=== PATIENT | male | born 1995 | race Caucasian/White ===

== ENCOUNTER 2016-09-06 16:48 | Emergency (ER) | payer SELFPAY ==
[~2016-09-06] VITALS: Ht 185.4 cm; Wt 84.0 kg
[~2016-09-06 16:48] MED LIST: ZITH250T PO; ZOFR4TAB3 SL
[2016-09-06 16:54] VITALS: PULSE 66; RESP 16; TEMP 97.6; O2SAT 100
--- NOTE | 2016-09-06 17:42 | PD ---
HPI Chief Complaint: Allergic/Adverse Reaction Time Seen by Provider: 17:26 Travel History International Travel<30 days: No Contact w/Intl Traveler<30days: No Traveled to known affect area: No History of Present Illness HPI 21yo M with PMH of brain tumor s/p resection presents to the ED with c/o rash since 4pm today. Pt first noticed it in left arm and then spread to entire body. It is itchy and he took 2 benadryl which did not really help. Pt initially had sob when he arrived and now some chest tightness. Denies any tongue or lip swelling, n/v, abdominal pain. Pt used her sister's body wash yesterday that is new but denies any new food, medication or lotion otherwise. PFSH Past Medical History Anemia: Yes Diminished Hearing: No Immunizations Current: Yes Past Surgical History Other Surgery: Yes ("BRAIN SX. A CHILD" PER PT.) Social History Alcohol Use: No Tobacco Use: No Substance Use: Yes (KERI) Allergies-Medications (Allergen,Severity, Reaction): Coded Allergies: No Known Allergies (Verified , 09/06/16) Reported Meds & Prescriptions Reported Meds & Active Scripts Active Prednisone 20 Mg Tab 20 Mg PO BID 5 Days Allergy (Diphenhydramine HCl) 25 Mg Cap 25 Mg PO Q8HR 5 Days Adrenaclick Inj Pack (Epinephrine) 0.3 Mg/0.3 Ml Pfpen 0.3 Mg IM ONCE PRN Review of Systems Except as stated in HPI: all other systems reviewed are Neg Physical Exam Narrative GENERAL: 21yo M not in distress. SKIN: Diffuse urticarial rash in abdomen, chest, bilateral arms and legs. HEAD: Atraumatic. Normocephalic. EYES: Pupils equal and round. No scleral icterus. No injection or drainage. ENT: Throat: Uvula midline. No tongue or uvula swelling. NECK: Trachea midline. No JVD. CARDIOVASCULAR: Regular rate and rhythm. No murmur appreciated. RESPIRATORY: No accessory muscle use. Clear to auscultation. Breath sounds equal bilaterally. GASTROINTESTINAL: Abdomen soft, non-tender, nondistended. MUSCULOSKELETAL: No obvious deformities. No clubbing. No cyanosis. No edema. NEUROLOGICAL: Awake and alert. No obvious cranial nerve deficits. Motor grossly within normal limits. Normal speech. PSYCHIATRIC: Appropriate mood and affect; insight and judgment normal. Data Data Last Documented VS Vital Signs Date Time Temp Pulse Resp B/P Pulse Ox O2 Delivery O2 Flow Rate FiO2 09/06/16 21:18 88 18 153/63 98 Room Air 09/06/16 16:54 97.6 Orders Ecg Monitoring (09/06/16 17:36) Iv Access Insert/Monitor (09/06/16 17:36) Oximetry (09/06/16 17:36) Methylprednisolone So Succ Inj (Solumedr (09/06/16 17:45) Famotidine Inj (Pepcid Inj) (09/06/16 17:45) Sodium Chloride 0.9% Flush (Ns Flush) (09/06/16 17:45) Epinephrine (1:1000) Inj (Adrenalin (1:1 (09/06/16 17:45) Electrocardiogram (09/06/16 17:50) MDM Medical Decision Making Medical Screen Exam Complete: Yes Emergency Medical Condition: Yes Interpretation(s) EKG: NSR 80bpm. Normal axis. +PVCs. No ST segment elevation or depression. Differential Diagnosis Anaphylaxis vs. urticaria Narrative Course 21yo M with generalized urticaria and sob/chest tightness that started at 4pm today. Pt took benadryl without relieve. Pt with 2 systems involvement so will give epinephrine, methylprednisolone and famotidine. Pt reevaluated at bedside and urticaria has improved. States chest tightness has also improved. Pt has been observed in the ED on bus monitor for 4 hours after epinephrine administration and his symptoms has resolved. Pt denies any sob, chest tightness and urticarial rash has significantly improved. Lungs are clear. Return precautions given. Diagnosis Primary Impression: Anaphylaxis Qualified Code: T78.2XXA - Anaphylaxis, initial encounter Patient Instructions: General Instructions Departure Forms: Tests/Procedures Additional Instructions: Please follow up with your PMD in 3-7 days. Please return to the ED if symptoms worsen. Med/Other Pt SpecificInfo: Prescription(s) given Scripts Prednisone 20 Mg Tab20 Mg PO BID 5 Days Ref 0 Prov:Danni Naranjo DO 09/06/16 Diphenhydramine HCl (Allergy)25 Mg Cap25 Mg PO Q8HR 5 Days Prov:Danni Naranjo DO 09/06/16 Epinephrine Inj Pack (Adrenaclick Inj Pack)0.3 Mg/0.3 Ml Pfpen0.3 Mg IM ONCE PRN (ALLERGIC REACTION) #1 PACK Prov:Danni Naranjo DO 09/06/16 Disposition: 01 DISCHARGE HOME Condition: Stable Danni Naranjo DO Sep 06, 2016 17:42
[2016-09-06] MEDS ORDERED: FAMOTIDINE 20 MG/2 ML VIAL IV PUSH ONE (17:45)
[2016-09-06] MEDS ORDERED: SODIUM CHLORIDE 0.9% FLUSH 5 ML FLUSH IVF PRN (17:45)
[2016-09-06] MEDS ORDERED: EPINEPHrine HCL (1:1000) 1 MG/ML VIAL IM ONE (17:45)
[2016-09-06] MEDS ORDERED: methylPREDNISolone SOD SUCC 125 MG/2 ML VIAL IVP ONE (17:45)
[2016-09-06 18:29] VITALS: BP 139/57; PULSE 84; RESP 16; O2SAT 100
[2016-09-06 18:30] VITALS: RESP 16; O2SAT 100
[2016-09-06] MEDS ORDERED: [UNRECOGNIZED DRUG - CODE] IM (18:46)
[2016-09-06] MEDS ORDERED: PRED20 PO (18:46)
[2016-09-06] MEDS ORDERED: ALLE25CA PO (18:46)
[2016-09-06 20:01] VITALS: BP 139/62; PULSE 69; RESP 16; O2SAT 100
[2016-09-06 21:18] VITALS: BP 153/63; PULSE 88; RESP 18; O2SAT 98
--- NOTE | 2016-09-07 21:27 | EKG ---
Date Performed: 09/06/2016 Time Performed: 17:50:26 PTAGE: 21 years EKG: Sinus rhythm with frequent PVCs Abnormal ECG NO PREVIOUS TRACING DOCTOR: Amarjit Constantino Interpretating Date/Time 09/07/2016 21:26:06
== END 2016-09-06 21:33 | disposition home or self-care (01) ==
LOC: PHEFT 16:48
DX: T78.2XXA Anaphylactic shock, unspecified, initial encounter (principal)
CPT/HCPCS: 93005; 96372; 96374; 96375; 99283; J0171; J2930

== ENCOUNTER 2017-01-28 12:05 | Emergency (ER) | payer SELFPAY ==
[~2017-01-28] VITALS: Ht 185.4 cm; Wt 77.0 kg
[~2017-01-28 12:05] MED LIST changes: +ALLE25CA PO; +PRED20 PO; -ZITH250T PO; -ZOFR4TAB3 SL; +[UNRECOGNIZED DRUG - CODE] IM
[2017-01-28 12:08] VITALS: BP 160/72; PULSE 105; RESP 16; TEMP 99.6; O2SAT 99
--- NOTE | 2017-01-28 12:27 | PD ---
HPI Chief Complaint: Cold / Flu Symptoms Time Seen by Provider: 12:25 Travel History International Travel<30 days: No Contact w/Intl Traveler<30days: No Traveled to known affect area: No History of Present Illness HPI 21-year-old male presents Department one week history of cough, active nature starting with clear mucus but now having green purulent sputum and chest pain bilaterally. He states he is short of breath with exertion and wheezing. He has no history of asthma. He has low-grade fever and chills today. Patient states the cough is bad enough that it is caused him to vomit, although he denies abdominal pain, nausea, or diarrhea. He denies upper respiratory symptoms such as headache, sore throat, or ear pain. He states it' s gotten worse over the past 2 days. Patient denies alcohol or tobacco use but does smoke marijuana. Patient has no previous history of pneumonia. He has no known drug allergies. PFSH Past Medical History Anemia: Yes Diminished Hearing: No Immunizations Current: Yes Past Surgical History Other Surgery: Yes ("BRAIN SX. A CHILD" PER PT.) Social History Alcohol Use: No Tobacco Use: No Substance Use: Yes (KERI) Allergies-Medications (Allergen,Severity, Reaction): Coded Allergies: No Known Allergies (Verified , 01/28/17) Reported Meds & Prescriptions Reported Meds & Active Scripts Active Prednisone 20 Mg Tab 20 Mg PO BID Azithromycin 500 Mg Tab 500 Mg PO DAILY Ventolin Hfa 18 GM Inh (Albuterol Sulfate) 90 Mcg/Act Aer 2 Puff INH Q4-6H PRN Review of Systems Except as stated in HPI: all other systems reviewed are Neg General / Constitutional: Positive: Fever, Chills Eyes: No: Visual changes HENT: No: Headaches, Vertigo, Lightheadedness, Sore Throat, Rhinitis, Rhinorrhea, Congestion, Nosebleed, Neck Stiffness, Neck Pain, Earache Cardiovascular: No: Chest Pain or Discomfort Respiratory: Positive: Cough, Shortness of Breath, Wheezing, Pleuritic Pain Gastrointestinal: Positive: Vomiting (posttussive), No: Nausea, Diarrhea, Abdominal Pain Genitourinary: No: Dysuria Musculoskeletal: No: Pain Skin: No Rash Neurologic: No: Weakness Psychiatric: No: Depression Endocrine: No: Polydipsia Hematologic/Lymphatic: No: Easy Bruising Physical Exam Narrative GENERAL: Patient appears in mild to moderate distress. He appears ill but not septic. SKIN: Warm and mild diaphoresis. Normal color. Normal turgor. HEAD: Atraumatic. Normocephalic. EYES: Pupils equal and round. No scleral icterus. No injection or drainage. ENT: No nasal bleeding or discharge. Mucous membranes pink and moist. TMs are clear bilaterally. No sinus tenderness to palpation. Pharynx is clear. Airway is patent. No significant lymphadenopathy. NECK: Trachea midline. Supple nontender without significant lymphadenopathy. CARDIOVASCULAR: Regular rate and rhythm. RESPIRATORY: No accessory muscle use. Diffuse wheezes and mild rales in the lower aspects bilaterally. Breath sounds equal bilaterally. No significant fremitus or egophony appreciated. GASTROINTESTINAL: Abdomen soft, non-tender, nondistended. Hepatic and splenic margins not palpable. MUSCULOSKELETAL: Extremities without clubbing, cyanosis, or edema. No obvious deformities. NEUROLOGICAL: Awake and alert. No obvious cranial nerve deficits. Motor grossly within normal limits. Five out of 5 muscle strength in the arms and legs. Normal speech. PSYCHIATRIC: Appropriate mood and affect; insight and judgment normal. Data Data Last Documented VS Vital Signs Date Time Temp Pulse Resp B/P Pulse Ox O2 Delivery O2 Flow Rate FiO2 01/28/17 12:35 99 Room Air 01/28/17 12:20 92 18 01/28/17 12:08 99.6 160/72 Orders Electrocardiogram (01/28/17 12:22) Complete Blood Count With Diff (01/28/17 12:22) Comprehensive Metabolic Panel (01/28/17 12:22) Chest, Pa & Lat (01/28/17 12:22) Ecg Monitoring (01/28/17 12:22) Iv Access Insert/Monitor (01/28/17 12:22) Oximetry (01/28/17 12:22) Oxygen Administration (01/28/17 12:22) Methylprednisolone So Succ Inj (Solumedr (01/28/17 12:30) Albuterol-Ipratropium Neb (Duoneb Neb) (01/28/17 12:30) Sodium Chloride 0.9% Flush (Ns Flush) (01/28/17 12:30) Azithromycin (Zithromax) (01/28/17 12:30) Ceftriaxone Inj (Rocephin Inj) (01/28/17 12:30) Sodium Chlor 0.9% 1000 Ml Inj (Ns 1000 M (01/28/17 12:30) Ketorolac Inj (Toradol Inj) (01/28/17 12:30) Labs Laboratory Tests Test 01/28/17 12:30 White Blood Count 14.1 TH/MM3 Red Blood Count 4.18 MIL/MM3 Hemoglobin 9.1 GM/DL Hematocrit 28.1 % Mean Corpuscular Volume 67.3 FL Mean Corpuscular Hemoglobin 21.7 PG Mean Corpuscular Hemoglobin 32.3 % Concent Red Cell Distribution Width 13.9 % Platelet Count 194 TH/MM3 Mean Platelet Volume 9.3 FL Neutrophils (%) (Auto) 83.7 % Lymphocytes (%) (Auto) 8.2 % Monocytes (%) (Auto) 5.7 % Eosinophils (%) (Auto) 0.1 % Basophils (%) (Auto) 2.3 % Neutrophils # (Auto) 11.8 TH/MM3 Lymphocytes # (Auto) 1.2 TH/MM3 Monocytes # (Auto) 0.8 TH/MM3 Eosinophils # (Auto) 0.0 TH/MM3 Basophils # (Auto) 0.3 TH/MM3 CBC Comment AUTO DIFF Differential Comment AUTO DIFF CONFIRMED Platelet Estimate NORMAL Platelet Morphology Comment NORMAL Target Cells 1+ Keratocytes OCC Sodium Level 136 MEQ/L Potassium Level 3.7 MEQ/L Chloride Level 102 MEQ/L Carbon Dioxide Level 26.1 MEQ/L Anion Gap 8 MEQ/L Blood Urea Nitrogen 11 MG/DL Creatinine 0.77 MG/DL Estimat Glomerular Filtration 126 ML/MIN Rate Random Glucose 80 MG/DL Calcium Level 9.4 MG/DL Total Bilirubin 1.6 MG/DL Aspartate Amino Transf 37 U/L (AST/SGOT) Alanine Aminotransferase 47 U/L (ALT/SGPT) Alkaline Phosphatase 126 U/L Total Protein 7.6 GM/DL Albumin 3.7 GM/DL [facility] Medical Decision Making Medical Screen Exam Complete: Yes Emergency Medical Condition: Yes Differential Diagnosis Wheezy bronchitis. Pneumonia. Pleuritic pain. Cardiac syndrome. Possible PE. Narrative Course Patient is medically stable at time of exam. EKG is performed showing normal sinus rhythm without ST changes. Chest x-ray PA and lateral was ordered. IV access is obtained and labs are sent to the lab including CBC, CMP. Patient is given 125 mg Solu-Medrol IV as well as 30 mg Toradol IV. Patient is given the DuoNeb 1. Patient is given thousand milligrams Rocephin IV, as well as azithromycin 500 mg by mouth. Chest x-ray shows consolidation in the right lower lobes consistent with possible early pneumonia. Patient will be continued on azithromycin 500 mg daily for the next 5 days. Patient is continued on prednisone 20 mg twice a day 5 days. Patient is given albuterol metered-dose inhaler 2 puffs every 6 hours when necessary cough wheeze. Patient is encouraged to stop smoking marijuana as it could've been a causative agent. Patient follow with primary care physician or return to emergency Department with worsening symptoms as needed. Work note is given until Thursday. Diagnosis Primary Impression: Right lower lobe pneumonia Qualified Code: J18.1 - Pneumonia of right lower lobe due to infectious organism Referrals: [facility] [address] Primary Care Physician Patient Instructions: General Instructions Departure Forms: Work Release Enter return to work date: Jan 31, 2017 Additional Instructions: Patient is given 125 mg Solu-Medrol IV as well as 30 mg Toradol IV. Patient is given the DuoNeb 1. Patient is given thousand milligrams Rocephin IV, as well as azithromycin 500 mg by mouth. Chest x-ray shows consolidation in the right lower lobes consistent with possible early pneumonia. Patient will be continued on azithromycin 500 mg daily for the next 5 days. Patient is continued on prednisone 20 mg twice a day 5 days. Patient is given albuterol metered-dose inhaler 2 puffs every 6 hours when necessary cough wheeze. Patient is encouraged to stop smoking marijuana as it could've been a causative agent. Patient follow with primary care physician or return to emergency Department with worsening symptoms as needed. Work note is given until Thursday. Med/Other Pt SpecificInfo: Prescription(s) given Scripts Prednisone 20 Mg Tab20 Mg PO BID #10 TAB Prov:Deandra Thomason MD 01/28/17 Azithromycin 500 Mg [id number] Mg PO DAILY #5 TAB Prov:Deandra Thomason MD 01/28/17 Albuterol 18 GM Inh (Ventolin Hfa 18 GM Inh)90 Mcg/Act Aer2 Puff INH Q4-6H PRN ( SHORTNESS OF BREATH) #1 INHALER Prov:Deandra Thomason MD 01/28/17 Disposition: 01 DISCHARGE HOME Condition: Stable Deo Gonsalesw F. PA Jan 28, 2017 12:27
[2017-01-28] MEDS ORDERED: KETOROLAC TROMETHAMINE 30 MG/ML (IVP) VIAL IV PUSH ONE (12:30)
[2017-01-28] MEDS ORDERED: cefTRIAXone INJ 1,000 MG in SODIUM CHLORIDE 0.9% INJ 100 ML IV ONE (12:30)
[2017-01-28] MEDS ORDERED: SODIUM CHLOR 0.9% 1000 ML INJ 1,000 ML IV ONE (12:30)
[2017-01-28] MEDS ORDERED: RESP: ALBUTEROL 2.5 MG/IPRATROPIUM 0.5 MG NEB (SCH) INH ONE (12:30)
[2017-01-28] MEDS ORDERED: SODIUM CHLORIDE 0.9% FLUSH 10 ML FLUSH IVF PRN (12:30)
[2017-01-28] MEDS ORDERED: AZITHROMYCIN 250 MG TAB PO SCH (12:30)
[2017-01-28] MEDS ORDERED: methylPREDNISolone SOD SUCC 125 MG/2 ML VIAL IVP ONE (12:30)
[2017-01-28 12:35] VITALS: O2SAT 99
[2017-01-28 12:39] LABS: AUTOMATED NEUTROPHIL # 11.8 TH/MM3 (1.8-7.7); BASOPHIL # 0.3 TH/MM3 (0-0.2); BASOPHIL % 2.3 % (0.0-2.0); EOSINOPHIL % 0.1 % (0.0-4.0); HEMATOCRIT 28.1 % (39.0-51.0); LYMPH % 8.2 % (9.0-44.0); LYMPHOCYTE # 1.2 TH/MM3 (1.0-4.8); MEAN CELL VOLUME 67.3 FL (80.0-100.0); MEAN CORPUSCULAR HEMOGLOBIN 21.7 PG (27.0-34.0); MEAN CORPUSCULAR HGB CONC 32.3 % (32.0-36.0); MONO % 5.7 % (0.0-8.0); NEUT % 83.7 % (16.0-70.0); PLATELET COUNT 194 TH/MM3 (150-450); RED BLOOD COUNT 4.18 MIL/MM3 (4.50-5.90); RED CELL DISTRIBUTION WIDTH 13.9 % (11.6-17.2); WHITE BLOOD COUNT 14.1 TH/MM3 (4.0-11.0)
[2017-01-28 12:42] LABS: HEMO FLAGS AUTO DIFF
[2017-01-28 12:47] LABS: CHLORIDE 102 MEQ/L (98-107); POTASSIUM 3.7 MEQ/L (3.5-5.1); SODIUM (NA) 136 MEQ/L (136-145)
[2017-01-28 12:51] LABS: ANION GAP 8 MEQ/L (5-15); BICARBONATE 26.1 MEQ/L (21.0-32.0); BLOOD UREA NITROGEN 11 MG/DL (7-18)
[2017-01-28 12:54] LABS: ALT (GPT) 47 U/L (12-78); AST (GOT) 37 U/L (15-37); GLOMERULAR FILTRATION RATE 126 ML/MIN (>89)
[2017-01-28 12:55] LABS: TOTAL BILIRUBIN ADULT 1.6 MG/DL (0.2-1.0)
[2017-01-28 12:57] LABS: ALKALINE PHOSPHATASE 126 U/L (45-117)
[2017-01-28] MEDS ORDERED: AZIT500T2 PO (13:15)
[2017-01-28] MEDS ORDERED: PRED20 PO (13:15)
[2017-01-28] MEDS ORDERED: VENTAER INH (13:15)
[2017-01-28 13:16] LABS: KERATOCYTES OCC (NORMAL); PLATELET ESTIMATE SMEAR NORMAL (NORMAL); TARGET CELLS 1+ (NORMAL)
[2017-01-28 13:17] LABS: PLATELET MORPHOLOGY NORMAL (NORMAL); SCAN/DIFF AUTO DIFF CONFIRMED
--- NOTE | 2017-01-28 13:32 | RADRPT ---
EXAM DATE/TIME: 01/28/2017 12:49 [facility] COMPARISON: No previous studies available for comparison. INDICATIONS : Cough. Chest pain MEDICAL HISTORY : None. SURGICAL HISTORY : None. ENCOUNTER: Initial ACUITY: 1 week PAIN SCORE: 4/10 LOCATION: Bilateral chest FINDINGS: Minimal consolidative changes are present right base consistent with an inflammatory process. The hea rt and pulmonary vascularity are normal. The portion of the bony skeleton visualized is unremarkable. . CONCLUSION: Consolidative changes right base Celso Rick MD FACR on January 28, 2017 at 13:29 Board Certified Radiologist. This report was verified electronically.
[2017-01-28 13:45] VITALS: RESP 16
[2017-01-29] MEDS ORDERED: LEVA750T9 PO (08:52)
--- NOTE | 2017-01-29 14:54 | EKG ---
Date Performed: 01/28/2017 Time Performed: 12:36:07 PTAGE: 21 years EKG: Sinus rhythm NORMAL ECG PREVIOUS TRACING : 09/06/2016 17.50 Since previous tracing, no significant change noted DOCTOR: Shazia Gomez Interpretating Date/Time 01/29/2017 14:52:45
== END 2017-01-28 14:05 | disposition home or self-care (01) ==
LOC: PHED 12:05
DX: J18.1 Lobar pneumonia, unspecified organism (principal); F12.90 Cannabis use, unspecified, uncomplicated
CPT/HCPCS: 71020; 80053; 85025; 93005; 94664; 96365; 96375; 99285; J0696; J1885; J2930; J7030

== ENCOUNTER 2017-01-29 08:30 | Emergency (ER) | payer SELFPAY ==
[~2017-01-29] VITALS: Ht 185.4 cm; Wt 78.4 kg
[~2017-01-29 08:30] MED LIST changes: +AZIT500T2 PO; +VENTAER INH
[2017-01-29 08:34] VITALS: BP 135/61; PULSE 97; RESP 16; TEMP 98.5; O2SAT 98
[2017-01-29] MEDS ORDERED: LEVA750T9 PO (08:52)
--- NOTE | 2017-01-29 08:56 | PD ---
HPI Chief Complaint: Allergic/Adverse Reaction Time Seen by Provider: 08:44 Travel History International Travel<30 days: No Contact w/Intl Traveler<30days: No Traveled to known affect area: No History of Present Illness HPI This patient was seen here yesterday and prescribed Zithromax for pneumonia. He started taking it and then broke out into hives on his torso and extremities. He has itching but no shortness of breath. Severity is moderate. No alleviating factors. Duration one day PFSH Past Medical History Anemia: Yes Anxiety: Yes Diminished Hearing: No Immunizations Current: Yes Past Surgical History Other Surgery: Yes (Rt. head as child, doesn't know why) Social History Alcohol Use: No Tobacco Use: No Substance Use: Yes (Marijuana) Allergies-Medications (Allergen,Severity, Reaction): Coded Allergies: Zithromax (Verified Allergy, Mild, Rash, 01/29/17) Reported Meds & Prescriptions Reported Meds & Active Scripts Active Levaquin (Levofloxacin) 750 Mg Tablet 750 Mg PO DAILY Prednisone 20 Mg Tab 20 Mg PO BID Azithromycin 500 Mg Tab 500 Mg PO DAILY Ventolin Hfa 18 GM Inh (Albuterol Sulfate) 90 Mcg/Act Aer 2 Puff INH Q4-6H PRN Review of Systems General / Constitutional: No: Fever HENT: No: Headaches Cardiovascular: No: Chest Pain or Discomfort Gastrointestinal: No: Vomiting Physical Exam Narrative RESPIRATORY: Respiratory effort unlabored, no retractions or use of accessory muscles. Breath sounds are clear and symmetric. CARDIOVASCULAR: Regular rate and rhythm without murmur. Extremities showed no edema or varicies SKIN: Focused skin assessment reveals urticarial rash on the torso and some involvement of the legs without ulcers. Skin is warm and dry. Palpation shows no induration or nodules. Data Data Last Documented VS Vital Signs Date Time Temp Pulse Resp B/P Pulse Ox O2 Delivery O2 Flow Rate FiO2 01/29/17 08:46 98 Room Air 01/29/17 08:34 98.5 97 16 135/61 Orders Diphenhydramine (Benadryl) (01/29/17 09:00) Prednisone (Deltasone) (01/29/17 09:00) MDM Medical Decision Making Medical Screen Exam Complete: Yes Emergency Medical Condition: Yes Medical Record Reviewed: Yes Differential Diagnosis Allergic reaction, urticaria, dermatitis Narrative Course I have reviewed the patient's electronic medical record. Reviewed his visit from yesterday. X-ray shows consolidative changes right base I gave him a dose of prednisone and Benadryl Reaction is limited to skin, no indication for epinephrine Will discontinue Zithromax and subsequently one week of Levaquin He will continue Benadryl and he already has prednisone prescription for the next 5 days Diagnosis Primary Impression: Allergic reaction caused by a drug Qualified Code: T78.40XA - Allergic reaction caused by a drug, initial encounter Additional Instructions: The patient was advised to follow up with their physician and return if they worsen. Stop Zithromax Use Benadryl every 6 hours and watch for sedation Med/Other Pt SpecificInfo: Prescription(s) given Scripts Levofloxacin (Levaquin)750 Mg [id number] Mg PO DAILY #7 Prov:Eugenio Farfan MD 01/29/17 Disposition: 01 DISCHARGE HOME Condition: Stable Eugenio Farfan MD Jan 29, 2017 08:56
[2017-01-29] MEDS ORDERED: diphenhydrAMINE HCL 50 MG CAP PO ONE (09:00)
[2017-01-29] MEDS ORDERED: predniSONE 20 MG TAB PO ONE (09:00)
== END 2017-01-29 09:07 | disposition home or self-care (01) ==
LOC: PHED 08:30
DX: L50.0 Allergic urticaria (principal); T36.3X5A Adverse effect of macrolides, initial encounter
CPT/HCPCS: 99283; J7512; Q0163